=== PATIENT | male | born 1945 | race Caucasian/White ===

== ENCOUNTER 2020-03-11 09:43 | Outpatient (CLI) | payer MEDICARE, BC ==
[2020-03-11 14:41] LABS: BASOPHILS # (AUTO) 0.1 10^3/uL (0.0-0.1); BASOPHILS % (AUTO) 0.7 %; EOSINOPHILS # (AUTO) 0.1 10^3/uL (0.0-0.7); EOSINOPHILS % (AUTO) 1.7 %; HGB - HEMOGLOBIN 14.7 g/dL (14.0-18.0); LYMPHOCYTES # (AUTO) 0.8 10^3/uL (1.5-3.5); LYMPHOCYTES % (AUTO) 10.4 %; MEAN CORPUSCULAR HEMOGLOBIN 31.5 pg (27.0-31.0); MEAN CORPUSCULAR HGB CONC 32.5 g/dL (32.0-36.0); MEAN PLATELET VOLUME 11.4 fL (7.4-11.4); MONOCYTES # (AUTO) 0.9 10^3/uL (0.0-1.0); MONOCYTES % (AUTO) 11.9 %; NEUTROPHILS # (AUTO) 5.7 10^3/uL (1.5-6.6); NEUTROPHILS % (AUTO) 74.8 %; PLT - PLATELET COUNT 216 10^3/uL (130-450); RED BLOOD COUNT 4.66 10^6/uL (4.70-6.10); RED CELL DISTRIBUTION WIDTH 12.8 % (12.0-15.0); WHITE BLOOD COUNT 7.6 x10^3/uL (4.8-10.8)
[2020-03-11 16:06] LABS: HEMOGLOBIN A1c% 5.6 % (4.27-6.07)
[2020-03-11 16:30] LABS: CHOL/HDL RATIO 5.2 (<5.0); CHOLESTEROL 172 mg/dL; HDL CHOLESTEROL 33 mg/dL; LDL CHOLESTEROL,CALCULATED 114 mg/dL; LDL/HDL RATIO 3.5 (<3.6); VLDL CHOLESTEROL 25 mg/dL
== END 2020-03-11 09:44 | disposition home or self-care (01) ==
LOC: LAB.S 09:43
PROVIDERS: ATTEND Internal Medicine
DX: Z00.00 Encounter for general adult medical examination without abnormal findings (principal)
CPT/HCPCS: 36415; 80061; 83036; 83721; 84443; 85025

== ENCOUNTER 2022-06-30 08:00 | Outpatient (CLI) | payer BC, MEDICARE, OTHER ==
--- NOTE | 2022-06-30 17:02 | XRAY Report ---
PROCEDURE: Clavicle RT INDICATIONS: CONTUSION OF RIGHT SHOULDER TECHNIQUE: 2 views of the clavicle were acquired. COMPARISON: X-ray shoulder 06/30/2022. FINDINGS: Bones: There are several small ossifications along the undersurface of the acromial overlying the jose int space.. No suspicious bony lesions. Severe acromioclavicular degenerative narrowing. Soft tissues: No suspicious soft tissue calcifications or masses. IMPRESSION: Small ossifications underlying the inferior surface of the acromium overlying the joint space. These could represent loose bodies or small avulsion fracture. Reviewed by: Diya Boucher MD on 06/30/2022 5:01 PM PDT Approved by: Diya Boucher MD on 06/30/2022 5:01 PM PDT Station ID: [id number]
--- NOTE | 2022-06-30 17:03 | XRAY Report ---
PROCEDURE: Shoulder 3 View RT INDICATIONS: CONTUSION OF RIGHT SHOULDER TECHNIQUE: 3 views of the shoulder were acquired. COMPARISON: X-ray clavicle 06/30/2022. FINDINGS: Bones: Small ossifications along the undersurface of the acromium. No suspicious bony lesions. Visua lized ribs appear intact. Soft tissues: No suspicious soft tissue calcifications. IMPRESSION: Small calcifications underlying the undersurface of the acromium. These could represent areas of loose body versus small avulsion fracture fragments. Reviewed by: Diya Boucher MD on 06/30/2022 5:02 PM PDT Approved by: Diya Boucher MD on 06/30/2022 5:02 PM PDT Station ID: [id number]
--- NOTE | 2022-06-30 17:03 | XRAY Report ---
PROCEDURE: Ribs w/PA Chest RT INDICATIONS: CONTUSION OF RIGHT BACK WALL OF THORAX TECHNIQUE: 3 views of the right ribs were acquired, along with a single view chest. COMPARISON: None FINDINGS: Surgical changes and devices: None. Bones and chest wall: No fractures or dislocations. No suspicious bony lesions. Overlying soft tis sues appear unremarkable. Lungs and pleura: No pleural effusions or pneumothorax. Lungs appear clear. Mediastinum: Mediastinal contours appear normal. Heart size is normal. IMPRESSION: No visualized acute fracture or dislocation. However, occult injury cannot be excluded. Recommend sallie rt interval imaging follow-up in 7-10 days as clinically indicated for additional evaluation. Reviewed by: Diya Boucher MD on 06/30/2022 5:02 PM PDT Approved by: Diya Boucher MD on 06/30/2022 5:02 PM PDT Station ID: [id number]
== END 2022-06-30 23:59 | disposition home or self-care (01) ==
LOC: DI.S 08:00
PROVIDERS: ATTEND Emergency Medicine
DX: S20.221A Contusion of right back wall of thorax, initial encounter (principal); S40.011A Contusion of right shoulder, initial encounter

== ENCOUNTER 2023-11-07 13:41 | Outpatient (CLI) | payer MEDICARE ==
[2023-11-07 19:55] LABS: BASOPHILS % (AUTO) 0.3 %; EOSINOPHILS % (AUTO) 0.6 %; HCT - HEMATOCRIT 39.2 % (42.0-52.0); HGB - HEMOGLOBIN 12.6 g/dL (14.0-18.0); LYMPHOCYTES # (AUTO) 0.8 10^3/uL (1.5-3.5); LYMPHOCYTES % (AUTO) 11.8 %; MEAN CORPUSCULAR HEMOGLOBIN 33.5 pg (27.0-31.0); MEAN CORPUSCULAR HGB CONC 32.1 g/dL (32.0-36.0); MEAN CORPUSCULAR VOLUME 104.3 fL (80.0-94.0); MEAN PLATELET VOLUME 12.1 fL (7.4-11.4); MONOCYTES # (AUTO) 1.3 10^3/uL (0.0-1.0); MONOCYTES % (AUTO) 19.7 %; NEUTROPHILS # (AUTO) 4.4 10^3/uL (1.5-6.6); NEUTROPHILS % (AUTO) 66.1 %; PLT - PLATELET COUNT 145 10^3/uL (130-450); RED BLOOD COUNT 3.76 10^6/uL (4.70-6.10); RED CELL DISTRIBUTION WIDTH 14.3 % (12.0-15.0); WHITE BLOOD COUNT 6.6 x10^3/uL (4.8-10.8)
[2023-11-07 20:12] LABS: CALCIUM 9.4 mg/dL (8.5-10.3); CREATININE 1.1 mg/dL (0.6-1.3); POTASSIUM 4.1 mmol/L (3.5-4.5)
[2023-11-07 20:22] LABS: THYROID STIMULATING HORMONE 1.77 uIU/mL (0.34-5.60)
== END 2023-11-07 13:42 | disposition home or self-care (01) ==
LOC: LAB.S 13:41
PROVIDERS: ATTEND Internal Medicine
DX: R20.0 Anesthesia of skin (principal); D64.9 Anemia, unspecified; E87.1 Hypo-osmolality and hyponatremia; R79.89 Other specified abnormal findings of blood chemistry
CPT/HCPCS: 36415; 80048; 82525; 82607; 82746; 84443; 85025